=== PATIENT | male | born 1965 | race Caucasian/White ===

== ENCOUNTER 2016-12-24 19:55 | Emergency (ER) | payer MEDICARE, OTHER ==
[~2016-12-24] VITALS: Ht 188 cm; Wt 83.9 kg
[~2016-12-24 19:55] MED LIST: ACET500T68 PO; ARIP20TA8 PO; ATOR40TA59 PO; Amoxicillin/Potassium Clav PO; CALC200T36 PO; CITA20TA5 PO; DIVA500T17 PO; FENO48TA2 PO; FISH1CAP PO; FOLI1TAB16 PO; Hydrocodone/Acetaminophen PO; LISI2.5T PO; LORA10TA3 PO; MELO-150 PO; MULT1TAB52 PO; NORT25CA PO
--- NOTE | 2016-12-24 21:19 | RAD ---
PROCEDURE Portable chest radiograph 12/24/2016 HISTORY Shortness of breath and chest pain. FINDINGS An AP erect portable digital radiograph of the chest was obtained. Comparison study is dated 12/11/2014. The cardiac silhouette is normal in size. The thoracic aorta is minimally tortuous. Areas of atelectasis and/or infiltrate are seen involving both lower lobes, right greater than left. An area of scarring and/or subsegmental atelectasis is seen involving left upper lobe. No pneumothorax or pleural effusion is seen. The osseous structures are grossly intact. IMPRESSION Bilateral lower lobe atelectasis and/or infiltrate, right greater than left. Electronically signed by: Tunde Garcia MD (Dec 24, 2016 21:17:51)
[2016-12-24] MEDS ORDERED: LEVO750T31 PO (21:46)
--- NOTE | 2016-12-24 21:46 | PHYS DOC ---
Past Medical History Past Medical History: Asthma, Depression, Diabetes-Type II, High Cholesterol, Hypertension, Pneumonia, Seizure, Schizophrenia Additional Past Medical Histor: DELUSIONAL DISORDERS Past Surgical History: Other Additional Past Surgical Histo: FRONTAL LOBECTOMY Alcohol Use: None Drug Use: None Adult General Chief Complaint Chief Complaint: MECHANICAL FALL HPI HPI This is a 51-year-old male who is presenting from [facility] for concern for a fall from his bed. Pt is normally requiring several liters of O2 for a known lung mass. Pt additionally has history of DM-II and HTN. Pt does not believe he hit his head or had any loss of consciousness. He complains of only mild left shoulder pain and mild left upper chest pain after the fall. He denies any specific pain symptoms anywhere else. He denies any shortness of breath beyond what he normally has. He denies any headache. Is fully alert and oriented and at his stated mental baseline. Review of Systems Review of Systems Constitutional: Denies fever or chills [] Eyes: Denies change in visual acuity, redness, or eye pain [] HENT: Denies nasal congestion or sore throat [] Respiratory: Denies cough or shortness of breath [] Cardiovascular: No additional information not addressed in HPI [] GI: Denies abdominal pain, nausea, vomiting, bloody stools or diarrhea [] : Denies dysuria or hematuria [] Musculoskeletal: Denies back pain or joint pain [] Integument: Denies rash or skin lesions [] Neurologic: Denies headache, focal weakness or sensory changes [] Endocrine: Denies polyuria or polydipsia [] Allergies Allergies Allergies Coded Allergies Type Severity Reaction Last Updated Verified fentanyl Allergy Unknown 12/24/16 Yes lisinopril Allergy Unknown 12/24/16 Yes Physical Exam Physical Exam Constitutional: Well developed, well nourished, no acute distress, non-toxic appearance. [] HENT: Normocephalic, atraumatic, bilateral external ears normal, oropharynx moist, no oral exudates, nose normal. [] Eyes: PERRLA, EOMI, conjunctiva normal, no discharge. [] Neck: Normal range of motion, no tenderness, supple, no stridor. [] Cardiovascular:Heart rate regular rhythm, no murmur [] Lungs & Thorax: Bilateral breath sounds clear to auscultation [] Abdomen: Bowel sounds normal, soft, no tenderness, no masses, no pulsatile masses. [] Skin: Warm, dry, no erythema, no rash. [] Back: No tenderness, no CVA tenderness. [] Extremities: No tenderness, no cyanosis, no clubbing, ROM intact, no edema. [] Neurologic: Alert and oriented X 3, normal motor function, normal sensory function, no focal deficits noted. [] Psychologic: Affect normal, judgement normal, mood normal. [] Current Patient Data Vital Signs Vital Signs Date Time Temp Pulse Resp B/P Pulse Ox O2 Delivery O2 Flow Rate FiO2 12/24/16 22:58 80 26 114/70 97 Nasal Cannula 3 12/24/16 20:00 97.8 97.8 EKG EKG [] Radiology/Procedures Radiology/Procedures One view of the chest as interpreted by me and the radiologist demonstrated the following: An AP erect portable digital radiograph of the chest was obtained. Comparison study is dated 12/11/2014. The cardiac silhouette is normal in size. The thoracic aorta is minimally tortuous. Areas of atelectasis and/or infiltrate are seen involving both lower lobes, right greater than left. An area of scarring and/or subsegmental atelectasis is seen involving left upper lobe. No pneumothorax or pleural effusion is seen. The osseous structures are grossly intact. Course & Med Decision Making Course & Med Decision Making Pertinent Labs and Imaging studies reviewed. (See chart for details) 51-year-old male has plain films that are negative for any acute injury. Patient does appear to have a right sided infiltrate that is worsened from a previous film. Because of this, I'll be treating him with a course of Levaquin that he will be safe to be discharged home as there is no evidence of any injuries at this time. Patient is saturating near 100% on his usual oxygen therapy in no acute distress. I do not see any indication perform any laboratory studies. He will follow closely with his primary care doctor in the next several days for symptom resolution and repeat chest x-ray as needed. He was discharged without incident to back to his facility. Dragon Disclaimer Dragon Disclaimer This electronic medical record was generated, in whole or in part, using a voice recognition dictation system. Departure Departure Impression: Primary Impression: Lung infiltrate Disposition: HOME, SELF-CARE Admitting Physician: Other Condition: STABLE Referrals: PIERRE,NANNETTE MD (PCP) Patient Instructions: Pneumonia, Adult, [id number] Additional Instructions: Please take your antibiotic as prescribed. Follow up with your primary doctor in the next 2-3 days. Return to the ER if you develop any worsening of your symptoms. Scripts Levofloxacin (Levaquin)750 Mg Tablet1 Tab PO DAILY #5 TAB Prov:SEEMA PAUL DO 12/24/16 SEEMA PAUL DO Dec 24, 2016 21:46
[2016-12-24 22:58] VITALS: BP 114/70
--- NOTE | 2016-12-25 07:44 | RAD ---
Indication: Left shoulder pain. Time of exam 8 hours. 3 views of the left shoulder were obtained. Glenohumeral and acromioclavicular alignment are normal. The acromiohumeral space is normal. No fracture or dislocation is seen. There is glenohumeral joint degenerative change noted. There is some spurring at the humeral head neck junction. Irregular density in the left upper lobe is noted, indeterminate. Impression: No acute bony abnormality is detected.
== END 2016-12-24 23:20 | disposition home or self-care (01) ==
LOC: ER 19:55
DX: R91.8 Other nonspecific abnormal finding of lung field (principal); R07.89 Other chest pain; M25.512 Pain in left shoulder; J45.909 Unspecified asthma, uncomplicated; F32.9 Major depressive disorder, single episode, unspecified; E11.9 Type 2 diabetes mellitus without complications; E78.00 Pure hypercholesterolemia, unspecified; I10 Essential (primary) hypertension; F20.9 Schizophrenia, unspecified; Z87.01 Personal history of pneumonia (recurrent); Z90.2 Acquired absence of lung [part of]; Z88.8 Allergy status to other drugs, medicaments and biological substances
CPT/HCPCS: 71010; 73030; 99284